=== PATIENT | male | born 1950 | race Caucasian/White ===

== ENCOUNTER 2016-10-03 07:47 | Outpatient (CLI) | payer BC, MEDICARE ==
[2016-10-03 09:00] LABS: Hemoglobin 13.9 g/dL (14.0-18.0); Mean Corpuscular HGB CONC 32.6 g/dL (32.0-36.0); Mean Corpuscular Hemoglobin 31.3 pg (27.0-31.0); Mean Platelet Volume 8.3 fL (7.4-10.4); Platelet Count 252 thou/uL (130-400); RBC Distribution Width 14.2 % (11.5-14.5); Red Blood Cell (RBC) Count 4.43 mill/uL (4.70-6.10); White Blood Cell (WBC) Count 9.6 thou/uL (4.8-10.8)
[2016-10-03 11:18] LABS: Anion Gap 18 mmol/L (10-20); Bilirubin, Total 0.9 mg/dL (0.2-1.2); Glucose 81 mg/dL (80-115)
[2016-10-03 11:34] LABS: ALT (SGPT) 13 U/L (0-55); AST (SGOT) 22 U/L (5-34); Albumin 3.6 g/dL (3.4-4.8); Alkaline Phosphatase 45 U/L (40-150); BUN (Urea Nitrogen) 18 mg/dL (8.4-25.7); Calc. Creatinine Clearance 0 mL/min (70-130); Calcium 9.5 mg/dL (7.8-10.44); Carbon Dioxide 24 mmol/L (23-31); Chloride 102 mmol/L (98-107); Estimated GFR-MDRD Greater than 90; Globulin 2.8 g/dL (2.4-3.5); Potassium 3.6 mmol/L (3.5-5.1); Protein, Total 6.4 g/dL (5.8-8.1); Sodium 140 mmol/L (136-145)
== END 2016-10-03 07:48 | disposition home or self-care (01) ==
LOC: MADLAB 07:47
PROVIDERS: ATTEND Family Medicine
DX: E11.9 Type 2 diabetes mellitus without complications (principal); I10 Essential (primary) hypertension; Z79.899 Other long term (current) drug therapy
CPT/HCPCS: 36415; 80053; 85027

== ENCOUNTER 2016-11-30 05:27 | Outpatient (CLI) | payer BC, MEDICARE ==
[2016-11-30 05:55] LABS: Hemoglobin 14.1 g/dL (14.0-18.0); Mean Corpuscular HGB CONC 32.8 g/dL (32.0-36.0); Mean Corpuscular Hemoglobin 31.5 pg (27.0-31.0); Mean Corpuscular Volume 96.1 fl (80.0-94.0); Mean Platelet Volume 10.3 fL (7.4-10.4); Platelet Count 203 thou/uL (130-400); RBC Distribution Width 13.5 % (11.5-14.5); Red Blood Cell (RBC) Count 4.48 mill/uL (4.70-6.10); White Blood Cell (WBC) Count 8.9 thou/uL (4.8-10.8)
[2016-11-30 06:17] LABS: ALT (SGPT) 38 U/L (0-55); AST (SGOT) 40 U/L (5-34); Albumin 3.7 g/dL (3.4-4.8); Alkaline Phosphatase 50 U/L (40-150); Anion Gap 17 mmol/L (10-20); BUN (Urea Nitrogen) 27 mg/dL (8.4-25.7); Bilirubin, Total 0.5 mg/dL (0.2-1.2); Calc. Creatinine Clearance 0 mL/min (70-130); Calcium 9.8 mg/dL (7.8-10.44); Carbon Dioxide 24 mmol/L (23-31); Cardiac Risk 2.3 (Less than 4.5); Chloride 104 mmol/L (98-107); Cholesterol 73 mg/dL (< 200 Desired); Estimated GFR-MDRD 88; Globulin 2.4 g/dL (2.4-3.5); Glucose 96 mg/dL (80-115); HDL Cholesterol 32 mg/dL (>60 Neg Risk); LDL Cholesterol, Calculated 25 mg/dL; Protein, Total 6.1 g/dL (5.8-8.1); Sodium 141 mmol/L (136-145); Triglycerides 78 mg/dL (Less than 150)
== END 2016-11-30 05:28 | disposition home or self-care (01) ==
LOC: MADLAB 05:27
PROVIDERS: ATTEND Internal Medicine Cardiovascular Disease
DX: E78.00 Pure hypercholesterolemia, unspecified (principal)
CPT/HCPCS: 36415; 80053; 80061; 85027

== ENCOUNTER 2017-03-01 05:32 | Outpatient (CLI) | payer BC, MEDICARE ==
[2017-03-01 06:19] LABS: #Basophils 0.2 thou/uL (0.0-0.2); #Eosinphils 0.7 thou/uL (0.0-0.7); #Lymphocytes 2.8 thou/uL (1.20-3.40); #Monocytes 0.7 thou/uL (0.11-0.59); #Neutrophils 3.2 thou/uL (1.40-6.50); %Eosinophils 9.3 % (0.0-10.0); %Lymphocytes 37.2 % (21.0-51.0); %Monocytes 9.3 % (0.0-10.0); %Neutrophils 42.2 % (42.0-75.0); Hemoglobin 14.2 g/dL (14.0-18.0); Mean Corpuscular HGB CONC 32.3 g/dL (32.0-36.0); Mean Platelet Volume 9.2 fL (7.4-10.4); Platelet Count 177 thou/uL (130-400); RBC Distribution Width 13.8 % (11.5-14.5); Red Blood Cell (RBC) Count 4.44 mill/uL (4.70-6.10); White Blood Cell (WBC) Count 7.6 thou/uL (4.8-10.8)
[2017-03-01 06:44] LABS: ALT (SGPT) 23 U/L (8-55); AST (SGOT) 31 U/L (5-34); Albumin 3.7 g/dL (3.4-4.8); Alkaline Phosphatase 57 U/L (40-150); Anion Gap 14 mmol/L (10-20); BUN (Urea Nitrogen) 35 mg/dL (8.4-25.7); Bilirubin, Direct 0.4 mg/dL (0.1-0.3); Bilirubin, Total 0.6 mg/dL (0.2-1.2); Calc. Creatinine Clearance 0 mL/min (70-130); Calcium 9.6 mg/dL (7.8-10.44); Carbon Dioxide 24 mmol/L (23-31); Cardiac Risk 1.9 (Less than 4.5); Chloride 107 mmol/L (98-107); Cholesterol 69 mg/dl (< 200 Desired); Estimated GFR-MDRD 75; Glucose 93 mg/dL (80-115); HDL Cholesterol 36 mg/dL (>60 Neg Risk); LDL Cholesterol, Calculated 22 mg/dL; Potassium 4.4 mmol/L (3.5-5.1); Sodium 141 mmol/L (136-145); Triglycerides 55 mg/dL (Less than 150)
[2017-03-01 07:11] LABS: PSA-Asymptomatic (SCREENING) 0.72 ng/mL (0-4.0); Thyroid Stimulating Hormone 2.1257 uIU/mL (0.35-4.94)
== END 2017-03-01 05:33 ==
LOC: MADLAB 05:32
PROVIDERS: ATTEND Internal Medicine Cardiovascular Disease
DX: E78.00 Pure hypercholesterolemia, unspecified (principal)
CPT/HCPCS: 80048; 80061; 80076; 83036; 83880; 84443; 85025; G0103

== ENCOUNTER 2018-03-02 06:16 | Outpatient (CLI) | payer BC, MEDICARE ==
[2018-03-02 07:48] LABS: #Basophils 0.1 thou/uL (0.0-0.2); #Eosinphils 0.3 thou/uL (0.0-0.7); #Lymphocytes 2.3 thou/uL (1.20-3.40); #Monocytes 0.5 thou/uL (0.11-0.59); #Neutrophils 2.1 thou/uL (1.40-6.50); %Basophils 1.9 % (0.0-1.0); %Eosinophils 5.3 % (0.0-10.0); %Lymphocytes 43.7 % (21.0-51.0); %Neutrophils 40.2 % (42.0-75.0); Hemoglobin 14.6 g/dL (14.0-18.0); Mean Corpuscular HGB CONC 31.8 g/dL (32.0-36.0); Mean Corpuscular Hemoglobin 32.1 pg (27.0-31.0); Mean Platelet Volume 8.5 fL (7.4-10.4); Platelet Count 166 thou/uL (130-400); RBC Distribution Width 14.1 % (11.5-14.5); Red Blood Cell (RBC) Count 4.55 mill/uL (4.70-6.10); White Blood Cell (WBC) Count 5.1 thou/uL (4.8-10.8)
[2018-03-02 08:20] LABS: ALT (SGPT) 30 U/L (8-55); AST (SGOT) 41 U/L (5-34); Albumin 3.7 g/dL (3.4-4.8); Alkaline Phosphatase 63 U/L (40-150); Anion Gap 17 mmol/L (10-20); BUN (Urea Nitrogen) 41 mg/dL (8.4-25.7); Bilirubin, Direct 0.3 mg/dL (0.1-0.3); Bilirubin, Total 0.7 mg/dL (0.2-1.2); Calc. Creatinine Clearance 0 mL/min (70-130); Calcium 9.3 mg/dL (7.8-10.44); Carbon Dioxide 24 mmol/L (23-31); Chloride 108 mmol/L (98-107); Cholesterol 53 mg/dl (< 200 Desired); Estimated GFR-MDRD 76; Glucose 82 mg/dL (80-115); HDL Cholesterol 27 mg/dL (>60 Neg Risk); LDL Cholesterol, Calculated 16 mg/dL; Potassium 4.1 mmol/L (3.5-5.1); Protein, Total 5.7 g/dL (5.8-8.1); Sodium 145 mmol/L (136-145); Triglycerides 50 mg/dL (Less than 150)
[2018-03-02 11:47] LABS: Hemoglobin A1c 4.7 % (4.0-6.0)
== END 2018-03-02 06:17 | disposition home or self-care (01) ==
LOC: MADLAB 06:16
PROVIDERS: ATTEND Family Medicine
DX: I11.0 Hypertensive heart disease with heart failure (principal); I50.9 Heart failure, unspecified
CPT/HCPCS: 36415; 80048; 80061; 80076; 83036; 83880; 84443; 85025

== ENCOUNTER 2020-10-27 18:04 | Inpatient (IN) | payer MEDICARE, OTHER ==
[2020-10-27] MEDS ORDERED: Nitroglycerin 0.4 MG TAB (25 Tab Bottle) SL PRN (19:49)
[2020-10-27] MEDS ORDERED: Polyethylene Glycol 3350 17 GM Packet PO PRN (19:49)
[2020-10-27] MEDS ORDERED: Loratadine 10 MG TAB PO PRN (19:49)
[2020-10-27] MEDS: Carvedilol 3.125 MG TAB PO SCH (21:19)
[2020-10-28] MEDS: Fenofibrate Nanocrystallized 145 MG TAB PO SCH (08:45)
[2020-10-28] MEDS: Famotidine 20 MG TAB PO SCH (08:46)
[2020-10-28] MEDS: Aspirin Chewable 81 MG TAB PO SCH (08:46)
[2020-10-28] MEDS: Dexamethasone 4 MG TAB PO SCH (08:46)
[2020-10-28] MEDS: Carvedilol 3.125 MG TAB PO SCH ×2 (08:48→20:00)
[2020-10-28] MEDS: Lisinopril 5 MG TAB PO SCH (08:48)
[2020-10-28] MEDS: Tamsulosin HCl 0.4 MG CAP PO SCH (08:49)
[2020-10-28] MEDS: Furosemide 40 MG TAB PO SCH (08:49)
[2020-10-28] MEDS: Rivaroxaban 10 MG TAB PO SCH (08:49)
[2020-10-28] MEDS: Finasteride 5 MG TAB PO SCH (08:49)
[2020-10-28] MEDS: Atorvastatin Calcium 40 MG TAB PO SCH (08:50)
[2020-10-28] MEDS: Potassium Chloride 20 MEQ TAB PO SCH (08:51)
[2020-10-28] MEDS: valACYclovir 500 MG TAB PO SCH (08:52)
[2020-10-28] MEDS: Multivit, Therapeutic 1 TAB PO SCH (08:52)
[2020-10-28] MEDS ORDERED: FLU VACC QS2020-21(65YR UP)/PF 240 MCG/0.7 ML SYRINGE IM ONE (09:00)
--- NOTE | 2020-10-28 21:01 | HP ---
REASON FOR ADMISSION: Skilled rehab in [place] secondary to deconditioning/general weakness after recent hospitalization. HISTORY OF PRESENT ILLNESS AND HOSPITAL COURSE: Mr. Vasquez is a pleasant 70-year-old gentleman who was initially admitted to [facility] on October 17, 2020, secondary to shortness of breath for several days. The patient had significant history of atrial fibrillation, CHF, anemia, CAD, hypertension, and morbid obesity. On admission, his BNP was reported at 2500 with Sp02 in the mid 80's requiring 3 liters of 02 per nasal cannula; Troponin 0.346 and Creatinine 2.5 with baseline of 1.0. He was admitted for diuresis. His INR was 6.5 initially. The patient also has a significant anemia that is being followed by Oncologist, for possible myeloma. During this admission, his echocardiogram showed ejection fraction of 40% to 50% with severely dilated LA and increased pulmonary artery pressures of 50 mmHg. He was placed on strict I's and O's, daily weights, and 1500 mL fluid restriction for 24 hours. The patient was initially placed on indwelling urinary catheter and was removed prior to discharge. He voided prior to discharge and continuously voiding upon admission in [place] without issues.He is currently, on Coreg, Lasix, lisinopril. Cardiology was in consultation for this and has recommended to continue current medications with no further cardiac interventions needed. Oncology was likewise consulted. Bone marrow biopsy on 10/20/2020 confirmed the diagnosis of free light chain multiple myeloma with 24-hour urine electrophoresis and light chain assay showed M-spike. After the Oncologist's discussion of the treatment options and safe technician prognosis with the patient and family, Oncologists recommended to start treatment with Velcade and dexamethasone once weekly. The first dose was started in the hospital prior to transfer, and his next followup appointment with oncologist, Dr. Amador will be on November 04, 2020 at 08:30 a.m. as outpatient. Overall, the patient's anemia was stable during his recent hospitalization. His most recent hemoglobin was 8.7 with hematocrit 27.3 and platelets of 180 on 10/27/2020. INR was down to 2.8 prior to discharge. The patient also had an acute kidney injury during this hospitalization. Nephrology was consulted. Renal ultrasound was ordered. There was no obstruction or abnormality and his kidney function stabilized with the latest BUN of 15 and creatinine of 0.60. Hypokalemia was noted and patient was maintained on 40 mEq daily at this point. On 10/27/2020, his potassium was 3.7, with sodium of 135. The patient has an appointment with Dr. Batista as outpatient followup on 11/13/2020 at 03:30 p.m. in [facility]. When evaluated, the patient reports that he is feeling a lot better. The patient started ambulating with the use of a rolling walker. He reports that he is still generally weak and somewhat wobbly with his gait. He has open blisters in his legs noted upon admission. Patient reports, they have been there chronically come and go. Patient is apparently chest pain- free. No shortness of breath nor dyspnea on exertion. Sp02 is stable at room air. No other new issues at this time. PAST MEDICAL HISTORY: Hypertension; chronic atrial fibrillation, on long-term use of anticoagulant; CAD; CHF with latest EF of 40% to 50%; pulmonary hypertension; anemia of chronic, uncertain etiology; dyslipidemia; CKD; history of bilateral lower extremity cellulitis; history of PVD; morbid obesity; BPH, GERD FAMILY HISTORY: Noncontributory. SOCIAL HISTORY: No alcohol, tobacco, or illicit drug use. Patient lives with his 24-year-old granddaughter in [facility]. Daughter, Leila Gallo, who acts as the medical power of research attorney, lives out of town, but is in contact with the patient and actively involved in patient's care. CURRENT MEDICATIONS: 1. Alirocumab 75 subcu every 14 days. 2. Aspirin chewable 81 mg p.o. daily. 3. Atorvastatin 20 mg p.o. daily. 4. Carvedilol 3.125 mg p.o. b.i.d. 5. Famotidine 20 mg daily. 6. Fenofibrate 145 mg p.o. daily. 7. Finasteride 5 mg p.o. daily. 8. Furosemide 40 mg p.o. daily. 9. Lisinopril 2.5 mg p.o. daily. 10. Loratadine 10 mg p.o. daily. 11. Nitroglycerin 0.4 mg subcu every 5 minutes p.r.n. 12. Polyethylene glycol 17 g p.o. daily p.r.n. 13. Potassium chloride 40 mEq p.o. q.a.m. 14. Xarelto 20 mg p.o. daily. 15. Tamsulosin 0.5 mg p.o. daily. 16. Valacyclovir 500 mg p.o. daily. REVIEW OF SYSTEMS: GENERAL: Denies fever or chills. Reports fatigue. HEENT: No acute visual changes or hearing changes. Reports allergy symptoms. RESPIRATORY: Denies cough or sputum production, wheezing. CARDIAC: Denies chest pain or heart palpitations, paroxysmal nocturnal dyspnea. GI: No nausea, vomiting, abdominal pain, or diarrhea. Reports constipation. GENITOURINARY: Reports urgency,no dysuria, hematuria, frequency, or incontinence. MUSCULOSKELETAL: Reports intermittent arthralgia. No joint effusion. NEURO: Denies focal paralysis, paresthesia, or seizures. PSYCH: Denies depressive symptoms, anxiety, or hallucinations. SKIN: reports chronic dry skin, rashes and sores. ALLERGIES: NKDA. PHYSICAL EXAMINATION: VITAL SIGNS: Blood pressure 100/61, temperature 97.4, pulse 63, respirations 18, O2 sats 95% on room air. Weight 207 pounds and 6 ounces. Height 5 feet 10 inches. GENERAL: The patient is awake, alert, oriented x3, comfortable, interacting appropriately, not in distress. HEENT: Normocephalic, atraumatic. PERR. Intact EOM. Anicteric sclerae. Oral mucosa is moist. NECK: Supple. No LAD. CHEST: Normal excursion. Nonlabored breathing. LUNGS: Diminished bibasal bases. No rales. No crackles. No wheezing. No rhonchi. CARDIAC: Rate controlled. Normal S1 and S2. ABDOMEN: Obese and soft. Normoactive bowel sounds. Nondistended, nontender. No rebound or guarding. Negative CVA tenderness bilaterally. EXTREMITIES: No edema. No cyanosis.Hyperpigmented lower legs. SKIN: Minimal redness on the sacrum. Left leg with open blisters medial mid tibia, and anterior tibia. Right leg with scaly and dry skin. EXTREMITIES: trace to 1+ leg edema, from dorsal surface of foot,up to tibia, bilaterally. NEUROLOGIC: Nonfocal. Gait unsteady. Normal spontaneous speech. PSYCH: Calm. Appropriate demeanor and affect. ASSESSMENT AND PLAN: 1. Deconditioning/general weakness with unsteady gait. We will refer to PT/OT.Fall precautions. 2. Free light chain multiple myeloma. Follow up with oncologist on 11/04/2020 at 08:30 a.m. for weekly treatment. Daughter reports the patient used to follow up with Dr. Amador. 3. Congestive heart failure with acute exacerbation. EF 40% to 50%. Continue diuretic, beta-carroll, and low-dose ANY inhibitor. We will continue to watch and monitor the patient's blood pressure as BP appears to be in the low range. The patient is symptom free. Strict fluid restrictions to 1500 mL per 24 hours. 4. Pulmonary hypertension. Consider to continue O2 per nasal cannula if indicated.Continue diuretic. 5. Microcytic anemia, stable hemoglobin at 8.7 as of 10/27/2020. The patient is currently asymptomatic. We will continue to monitor. 6. Paroxysmal atrial fibrillation, on long-term use of anticoagulant. We will continue Xarelto. Routine CBC monitoring. 7. Chronic kidney disease with hypokalemia. Continue KCl supplements and routine renal function and electrolytes monitoring. 8. [id number] elevation myocardial infarction, type 2, resolved. Currently symptom free. Follow up with Dr. Isabel as previously scheduled. 9. Dyslipidemia. Continue fenofibrate and Praluent. 10. Benign prostatic hypertrophy. Continue tamsulosin. 11. Open blisters,Leg. continue routine wound care. DISPOSITION: 1. Home once clinically appropriate. 2. Needs home health referral prior to discharge. CODE STATUS: DNAR per patient's wishes. This was confirmed by daughter/MPOA, Leila Gallo, on the phone. I had a lengthy discussion with the daughter, Leila, on the phone today. Daughter serves as the surrogate decision maker. We discussed in details the patient's apparent active and chronic diagnosis and its treatment. Daughter is actively involved in patient's care. She agreed with the followup treatment with Oncologist. States that ptient used to see Dr Amador for Oncology care but she spoke with Dr Manzanares who saw patient in the hospital. He will also follow up with Dr. Batista for nephrology care, and will set up appointment with sandblaster supervisor, Dr. Isabel, in any time as outpatient. All the daughter's questions and concerns were answered to her satisfaction. The daughter also discussed that the patient's previous PCP was . Daughter reports that previous PCP has already retired and has not had a chance to set up an appointment with new PCP as they do not know who replaced the previous PCP. Daughter is requesting if the patient could re-establish care in [facility] as the patient lives in [place]. The patient and daughter are requesting me to follow up the patient as outpatient. Time spent on this admission 45 minutes in examining the patient, coordinating care and counseling. Job ID: [id number] MTDD
[2020-10-29] MEDS: Multivit, Therapeutic 1 TAB PO SCH (08:39)
[2020-10-29] MEDS: Atorvastatin Calcium 40 MG TAB PO SCH (08:39)
[2020-10-29] MEDS: Aspirin Chewable 81 MG TAB PO SCH (08:39)
[2020-10-29] MEDS: Famotidine 20 MG TAB PO SCH (08:39)
[2020-10-29] MEDS: Potassium Chloride 20 MEQ TAB PO SCH (08:39)
[2020-10-29] MEDS: Rivaroxaban 10 MG TAB PO SCH (08:40)
[2020-10-29] MEDS: valACYclovir 500 MG TAB PO SCH (08:40)
[2020-10-29] MEDS: Finasteride 5 MG TAB PO SCH (08:40)
[2020-10-29] MEDS: Tamsulosin HCl 0.4 MG CAP PO SCH (08:40)
[2020-10-29] MEDS: Furosemide 40 MG TAB PO SCH (08:40)
[2020-10-29] MEDS: Lisinopril 5 MG TAB PO SCH (08:40)
[2020-10-29] MEDS: Carvedilol 3.125 MG TAB PO SCH ×2 (08:40→21:34)
[2020-10-29] MEDS: Fenofibrate Nanocrystallized 145 MG TAB PO SCH (08:41)
[2020-10-29] MEDS ORDERED: ALIROCUMAB 75 MG/ML SC SCH (20:00)
[2020-10-29] MEDS ORDERED: Emollient 15 oz bottle 450 ML, Triamcinolone Acetonide 200 MG TOP SCH (21:00)
[2020-10-29] MEDS: Emollient 15 oz bottle 450 ML, Triamcinolone Acetonide 200 MG TOP SCH (21:39)
[2020-10-29] MEDS ORDERED: Pramipexole Di-HCl 0.25 MG TAB PO SCH (23:00)
[2020-10-30] MEDS: valACYclovir 500 MG TAB PO SCH (08:17)
[2020-10-30] MEDS: Aspirin Chewable 81 MG TAB PO SCH (08:17)
[2020-10-30] MEDS: Multivit, Therapeutic 1 TAB PO SCH (08:17)
[2020-10-30] MEDS: Famotidine 20 MG TAB PO SCH (08:17)
[2020-10-30] MEDS: Lisinopril 5 MG TAB PO SCH (08:18)
[2020-10-30] MEDS: Potassium Chloride 20 MEQ TAB PO SCH (08:19)
[2020-10-30] MEDS: Atorvastatin Calcium 40 MG TAB PO SCH (08:19)
[2020-10-30] MEDS: Rivaroxaban 10 MG TAB PO SCH (08:20)
[2020-10-30] MEDS: Tamsulosin HCl 0.4 MG CAP PO SCH (08:20)
[2020-10-30] MEDS: Loratadine 10 MG TAB PO SCH (08:20)
[2020-10-30] MEDS: Finasteride 5 MG TAB PO SCH (08:20)
[2020-10-30] MEDS: Furosemide 40 MG TAB PO SCH (08:20)
[2020-10-30] MEDS: Carvedilol 3.125 MG TAB PO SCH ×2 (08:20→21:19)
[2020-10-30] MEDS: Emollient 15 oz bottle 450 ML, Triamcinolone Acetonide 200 MG TOP SCH ×2 (08:21→21:21)
[2020-10-30] MEDS: Fenofibrate Nanocrystallized 145 MG TAB PO SCH (08:26)
[2020-10-30 09:06] LABS: #Lymphocytes 0.9 thou/uL (1.20-3.40); #Monocytes 0.6 thou/uL (0.11-0.59); #Neutrophils 5.8 thou/uL (1.40-6.50); %Basophils 0.5 % (0.0-1.0); %Lymphocytes 12.5 % (21.0-51.0); %Monocytes 8.3 % (0.0-10.0); %Neutrophils 78.8 % (42.0-75.0); Hemoglobin 9.1 g/dL (14.0-18.0); Mean Corpuscular HGB CONC 31.4 g/dL (32.0-36.0); Mean Corpuscular Hemoglobin 34.2 pg (27.0-31.0); Mean Corpuscular Volume 108.7 fL (78.0-98.0); Mean Platelet Volume 8.8 fL (7.4-10.4); Platelet Count 213 thou/uL (130-400); RBC Distribution Width 19.9 % (11.5-14.5); Red Blood Cell (RBC) Count 2.67 mill/uL (4.70-6.10); White Blood Cell (WBC) Count 7.4 thou/uL (4.8-10.8)
[2020-10-30 09:09] LABS: ALT (SGPT) 29 U/L (8-55); AST (SGOT) 25 U/L (5-34); Alkaline Phosphatase 86 U/L (40-110); Anion Gap 16 mmol/L (10-20); BUN (Urea Nitrogen) 31 mg/dL (8.4-25.7); Bilirubin, Total 1.3 mg/dL (0.2-1.2); Calc. Creatinine Clearance 122 mL/min (70-130); Calcium 8.6 mg/dL (7.8-10.44); Carbon Dioxide 24 mmol/L (23-31); Chloride 105 mmol/L (98-107); Globulin 2.2 g/dL (2.4-3.5); Glucose 159 mg/dL (83-110); Potassium 3.5 mmol/L (3.5-5.1); Protein, Total 5.2 g/dL (5.8-8.1); Sodium 141 mmol/L (136-145)
[2020-10-30 09:12] LABS: Anisocytosis SLIGHT = 6-15 cells (100X) (0-5/hpf); Macrocytosis SLIGHT = 6-15 cells (100X) (0-5/hpf); Ovalocytes SLIGHT = 2-5 cells (100X) (0-1/hpf); Poikilocytosis SLIGHT = 6-15 cells (100X) (0-5/hpf)
[2020-10-30 09:13] LABS: Platelet Morphology Comment Appears Adequate
[2020-10-30 10:56] LABS: INR-International Normal Ratio 2.7; PTT 34.2 sec (22.9-36.1); Prothrombin Time 29.4 sec (12.0-14.7)
[2020-10-30] MEDS: Pramipexole Di-HCl 0.25 MG TAB PO SCH (21:19)
[2020-10-31] MEDS: Aspirin Chewable 81 MG TAB PO SCH (08:26)
[2020-10-31] MEDS: Fenofibrate Nanocrystallized 145 MG TAB PO SCH (08:26)
[2020-10-31] MEDS: Potassium Chloride 20 MEQ TAB PO SCH (08:26)
[2020-10-31] MEDS: Finasteride 5 MG TAB PO SCH (08:27)
[2020-10-31] MEDS: Atorvastatin Calcium 40 MG TAB PO SCH (08:27)
[2020-10-31] MEDS: Famotidine 20 MG TAB PO SCH (08:27)
[2020-10-31] MEDS: Carvedilol 3.125 MG TAB PO SCH ×2 (08:28→20:36)
[2020-10-31] MEDS: Tamsulosin HCl 0.4 MG CAP PO SCH (08:28)
[2020-10-31] MEDS: Multivit, Therapeutic 1 TAB PO SCH (08:28)
[2020-10-31] MEDS: Rivaroxaban 10 MG TAB PO SCH (08:28)
[2020-10-31] MEDS: valACYclovir 500 MG TAB PO SCH (08:28)
[2020-10-31] MEDS: Furosemide 20 MG TAB PO SCH (08:28)
[2020-10-31] MEDS: Loratadine 10 MG TAB PO SCH (08:29)
[2020-10-31] MEDS: Lisinopril 5 MG TAB PO SCH (08:29)
[2020-10-31] MEDS: Emollient 15 oz bottle 450 ML, Triamcinolone Acetonide 200 MG TOP SCH ×2 (09:22→20:36)
[2020-10-31] MEDS: Pramipexole Di-HCl 0.25 MG TAB PO SCH (20:36)
[2020-11-01] MEDS: Finasteride 5 MG TAB PO SCH (08:31)
[2020-11-01] MEDS: Aspirin Chewable 81 MG TAB PO SCH (08:31)
[2020-11-01] MEDS: Tamsulosin HCl 0.4 MG CAP PO SCH (08:31)
[2020-11-01] MEDS: Fenofibrate Nanocrystallized 145 MG TAB PO SCH (08:31)
[2020-11-01] MEDS: Famotidine 20 MG TAB PO SCH (08:31)
[2020-11-01] MEDS: valACYclovir 500 MG TAB PO SCH (08:31)
[2020-11-01] MEDS: Atorvastatin Calcium 40 MG TAB PO SCH (08:31)
[2020-11-01] MEDS: Rivaroxaban 10 MG TAB PO SCH (08:32)
[2020-11-01] MEDS: Carvedilol 3.125 MG TAB PO SCH ×2 (08:33→20:52)
[2020-11-01] MEDS: Lisinopril 5 MG TAB PO SCH (08:33)
[2020-11-01] MEDS: Multivit, Therapeutic 1 TAB PO SCH (08:33)
[2020-11-01] MEDS: Loratadine 10 MG TAB PO SCH (08:33)
[2020-11-01] MEDS: Furosemide 20 MG TAB PO SCH (08:33)
[2020-11-01] MEDS: Potassium Chloride 20 MEQ TAB PO SCH (08:34)
[2020-11-01] MEDS: Emollient 15 oz bottle 450 ML, Triamcinolone Acetonide 200 MG TOP SCH ×2 (11:58→20:52)
[2020-11-01] MEDS: Pramipexole Di-HCl 0.25 MG TAB PO SCH (20:52)
[2020-11-02] MEDS: Fenofibrate Nanocrystallized 145 MG TAB PO SCH (07:56)
[2020-11-02] MEDS: Potassium Chloride 20 MEQ TAB PO SCH (07:56)
[2020-11-02] MEDS: Tamsulosin HCl 0.4 MG CAP PO SCH (07:56)
[2020-11-02] MEDS: Finasteride 5 MG TAB PO SCH (07:56)
[2020-11-02] MEDS: Furosemide 20 MG TAB PO SCH (07:57)
[2020-11-02] MEDS: Atorvastatin Calcium 40 MG TAB PO SCH (07:57)
[2020-11-02] MEDS: Carvedilol 3.125 MG TAB PO SCH ×2 (07:57→20:17)
[2020-11-02] MEDS: Lisinopril 5 MG TAB PO SCH (07:57)
[2020-11-02] MEDS: Rivaroxaban 10 MG TAB PO SCH (07:57)
[2020-11-02] MEDS: Multivit, Therapeutic 1 TAB PO SCH (07:57)
[2020-11-02] MEDS: Famotidine 20 MG TAB PO SCH (07:57)
[2020-11-02] MEDS: Aspirin Chewable 81 MG TAB PO SCH (07:57)
[2020-11-02] MEDS: Emollient 15 oz bottle 450 ML, Triamcinolone Acetonide 200 MG TOP SCH ×2 (07:58→20:17)
[2020-11-02] MEDS: Loratadine 10 MG TAB PO SCH (07:58)
[2020-11-02] MEDS: valACYclovir 500 MG TAB PO SCH (07:58)
[2020-11-02] MEDS: Pramipexole Di-HCl 0.25 MG TAB PO SCH (20:17)
[2020-11-03 05:30] LABS: Hemoglobin 8.8 g/dL (14.0-18.0); Platelet Count 198 thou/uL (130-400)
[2020-11-03] MEDS ORDERED: Potassium Bicarbonate/Cit Ac 20 MEQ TAB PO SCH (08:00)
[2020-11-03] MEDS: Aspirin Chewable 81 MG TAB PO SCH (08:29)
[2020-11-03] MEDS: Finasteride 5 MG TAB PO SCH (08:29)
[2020-11-03] MEDS: Atorvastatin Calcium 40 MG TAB PO SCH (08:29)
[2020-11-03] MEDS: Multivit, Therapeutic 1 TAB PO SCH (08:30)
[2020-11-03] MEDS: Loratadine 10 MG TAB PO SCH (08:30)
[2020-11-03] MEDS: Fenofibrate Nanocrystallized 145 MG TAB PO SCH (08:30)
[2020-11-03] MEDS: Carvedilol 3.125 MG TAB PO SCH ×2 (08:30→20:22)
[2020-11-03] MEDS: Famotidine 20 MG TAB PO SCH (08:30)
[2020-11-03] MEDS: valACYclovir 500 MG TAB PO SCH (08:30)
[2020-11-03] MEDS: Lisinopril 5 MG TAB PO SCH (08:30)
[2020-11-03] MEDS: Tamsulosin HCl 0.4 MG CAP PO SCH (08:30)
[2020-11-03] MEDS: Furosemide 20 MG TAB PO SCH (08:30)
[2020-11-03] MEDS: Rivaroxaban 10 MG TAB PO SCH (08:30)
[2020-11-03] MEDS: Emollient 15 oz bottle 450 ML, Triamcinolone Acetonide 200 MG TOP SCH ×2 (08:31→20:23)
[2020-11-03] MEDS: Pramipexole Di-HCl 0.25 MG TAB PO SCH (20:22)
[2020-11-04] MEDS: Potassium Chloride 20 MEQ TAB PO SCH (07:31)
[2020-11-04] MEDS: Dexamethasone 4 MG TAB PO SCH (07:31)
[2020-11-04] MEDS: valACYclovir 500 MG TAB PO SCH (07:32)
[2020-11-04] MEDS: Furosemide 20 MG TAB PO SCH ×2 (07:32→14:42)
[2020-11-04] MEDS: Multivit, Therapeutic 1 TAB PO SCH (07:32)
[2020-11-04] MEDS: Finasteride 5 MG TAB PO SCH (07:33)
[2020-11-04] MEDS: Carvedilol 3.125 MG TAB PO SCH ×2 (07:33→20:45)
[2020-11-04] MEDS: Fenofibrate Nanocrystallized 145 MG TAB PO SCH (07:33)
[2020-11-04] MEDS: Rivaroxaban 10 MG TAB PO SCH (07:33)
[2020-11-04] MEDS: Loratadine 10 MG TAB PO SCH (07:33)
[2020-11-04] MEDS: Atorvastatin Calcium 40 MG TAB PO SCH (07:33)
[2020-11-04] MEDS: Aspirin Chewable 81 MG TAB PO SCH (07:33)
[2020-11-04] MEDS: Lisinopril 5 MG TAB PO SCH (07:34)
[2020-11-04] MEDS: Famotidine 20 MG TAB PO SCH (07:35)
[2020-11-04] MEDS: Emollient 15 oz bottle 450 ML, Triamcinolone Acetonide 200 MG TOP SCH ×2 (07:35→20:50)
[2020-11-04 15:34] VITALS: BMI 29.2
[2020-11-04] MEDS: Pramipexole Di-HCl 0.25 MG TAB PO SCH (20:45)
[2020-11-04] MEDS: Tamsulosin HCl 0.4 MG CAP PO SCH (20:46)
[2020-11-05] MEDS: Potassium Chloride 20 MEQ TAB PO SCH (08:23)
[2020-11-05] MEDS: Fenofibrate Nanocrystallized 145 MG TAB PO SCH (08:23)
[2020-11-05] MEDS: Finasteride 5 MG TAB PO SCH (08:23)
[2020-11-05] MEDS: Aspirin Chewable 81 MG TAB PO SCH (08:23)
[2020-11-05] MEDS: valACYclovir 500 MG TAB PO SCH (08:23)
[2020-11-05] MEDS: Famotidine 20 MG TAB PO SCH (08:23)
[2020-11-05] MEDS: Furosemide 20 MG TAB PO SCH (08:24)
[2020-11-05] MEDS: Loratadine 10 MG TAB PO SCH (08:24)
[2020-11-05] MEDS: Rivaroxaban 10 MG TAB PO SCH (08:24)
[2020-11-05] MEDS: Multivit, Therapeutic 1 TAB PO SCH (08:24)
[2020-11-05] MEDS: Atorvastatin Calcium 40 MG TAB PO SCH (08:25)
[2020-11-05] MEDS: Carvedilol 3.125 MG TAB PO SCH ×2 (08:28→21:27)
[2020-11-05] MEDS: Rivaroxaban 10 MG TAB ONE ×2 (08:28→10:15)
[2020-11-05] MEDS: Lisinopril 5 MG TAB PO SCH (08:29)
[2020-11-05] MEDS: Emollient 15 oz bottle 450 ML, Triamcinolone Acetonide 200 MG TOP SCH ×2 (10:56→21:44)
[2020-11-05] MEDS ORDERED: Loperamide HCl 2 MG CAP PO SCH (17:30)
[2020-11-05] MEDS: Tamsulosin HCl 0.4 MG CAP PO SCH (21:27)
[2020-11-05] MEDS: Pramipexole Di-HCl 0.25 MG TAB PO SCH (21:27)
[2020-11-05] MEDS: Loperamide HCl 2 MG CAP PO PRN (21:27)
[2020-11-06] MEDS: Fenofibrate Nanocrystallized 145 MG TAB PO SCH (08:27)
[2020-11-06] MEDS: Multivit, Therapeutic 1 TAB PO SCH (08:27)
[2020-11-06] MEDS: Loperamide HCl 2 MG CAP PO PRN (08:27)
[2020-11-06] MEDS: Aspirin Chewable 81 MG TAB PO SCH (08:27)
[2020-11-06] MEDS: Loratadine 10 MG TAB PO SCH (08:27)
[2020-11-06] MEDS: Finasteride 5 MG TAB PO SCH (08:27)
[2020-11-06] MEDS: Atorvastatin Calcium 40 MG TAB PO SCH (08:28)
[2020-11-06] MEDS: valACYclovir 500 MG TAB PO SCH (08:28)
[2020-11-06] MEDS: Rivaroxaban 10 MG TAB PO SCH (08:28)
[2020-11-06] MEDS: Famotidine 20 MG TAB PO SCH (08:28)
[2020-11-06] MEDS: Emollient 15 oz bottle 450 ML, Triamcinolone Acetonide 200 MG TOP SCH ×2 (08:31→20:36)
[2020-11-06 09:37] LABS: Anion Gap 15 mmol/L (10-20); BUN (Urea Nitrogen) 25 mg/dL (8.4-25.7); Calc. Creatinine Clearance 112 mL/min (70-130); Carbon Dioxide 20 mmol/L (23-31); Chloride 105 mmol/L (98-107); Glucose 229 mg/dL (83-110); Potassium 3.8 mmol/L (3.5-5.1); Sodium 136 mmol/L (136-145)
[2020-11-06] MEDS: Carvedilol 3.125 MG TAB PO SCH ×2 (10:15→20:03)
[2020-11-06] MEDS: Lisinopril 5 MG TAB PO SCH (10:28)
[2020-11-06] MEDS: Furosemide 20 MG TAB PO SCH (10:28)
[2020-11-06] MEDS: Simethicone Chewable 80 MG TAB PO PRN (19:25)
[2020-11-06] MEDS: Tamsulosin HCl 0.4 MG CAP PO SCH (20:03)
[2020-11-06] MEDS: Pramipexole Di-HCl 0.25 MG TAB PO SCH (20:03)
[2020-11-07] MEDS: Rivaroxaban 10 MG TAB PO SCH (08:37)
[2020-11-07] MEDS: valACYclovir 500 MG TAB PO SCH (08:37)
[2020-11-07] MEDS: Fenofibrate Nanocrystallized 145 MG TAB PO SCH (08:37)
[2020-11-07] MEDS: Aspirin Chewable 81 MG TAB PO SCH (08:38)
[2020-11-07] MEDS: Furosemide 20 MG TAB PO SCH (08:38)
[2020-11-07] MEDS: Finasteride 5 MG TAB PO SCH (08:38)
[2020-11-07] MEDS: Atorvastatin Calcium 40 MG TAB PO SCH (08:38)
[2020-11-07] MEDS: Loratadine 10 MG TAB PO SCH (08:38)
[2020-11-07] MEDS: Famotidine 20 MG TAB PO SCH (08:38)
[2020-11-07] MEDS: Carvedilol 3.125 MG TAB PO SCH ×2 (08:38→20:12)
[2020-11-07] MEDS: Multivit, Therapeutic 1 TAB PO SCH (08:38)
[2020-11-07] MEDS: Emollient 15 oz bottle 450 ML, Triamcinolone Acetonide 200 MG TOP SCH ×2 (08:39→20:12)
[2020-11-07] MEDS: Lisinopril 5 MG TAB PO SCH (08:39)
[2020-11-07] MEDS: Loperamide HCl 2 MG CAP PO PRN ×2 (09:00→14:54)
[2020-11-07] MEDS ORDERED: Potassium Chloride 20 MEQ TAB PO SCH (09:15)
[2020-11-07] MEDS: Simethicone Chewable 80 MG TAB PO PRN (20:11)
[2020-11-07] MEDS: Pramipexole Di-HCl 0.25 MG TAB PO SCH (20:11)
[2020-11-07] MEDS: Tamsulosin HCl 0.4 MG CAP PO SCH (20:11)
[2020-11-08] MEDS: Simethicone Chewable 80 MG TAB PO PRN ×2 (03:48→20:11)
[2020-11-08] MEDS ORDERED: Ondansetron PF 4 MG/2 ML Vial ONE (04:05)
[2020-11-08] MEDS: valACYclovir 500 MG TAB PO SCH (08:30)
[2020-11-08] MEDS: Famotidine 20 MG TAB PO SCH (08:30)
[2020-11-08] MEDS: Potassium Chloride 20 MEQ TAB PO SCH (08:30)
[2020-11-08] MEDS: Rivaroxaban 10 MG TAB PO SCH (08:30)
[2020-11-08] MEDS: Fenofibrate Nanocrystallized 145 MG TAB PO SCH (08:30)
[2020-11-08] MEDS: Atorvastatin Calcium 40 MG TAB PO SCH (08:30)
[2020-11-08] MEDS: Multivit, Therapeutic 1 TAB PO SCH (08:30)
[2020-11-08] MEDS: Loratadine 10 MG TAB PO SCH (08:31)
[2020-11-08] MEDS: Furosemide 20 MG TAB PO SCH (08:31)
[2020-11-08] MEDS: Aspirin Chewable 81 MG TAB PO SCH (08:31)
[2020-11-08] MEDS: Lisinopril 5 MG TAB PO SCH (08:32)
[2020-11-08] MEDS: Carvedilol 3.125 MG TAB PO SCH ×2 (08:32→20:12)
[2020-11-08] MEDS: Finasteride 5 MG TAB PO SCH (08:32)
[2020-11-08] MEDS: Emollient 15 oz bottle 450 ML, Triamcinolone Acetonide 200 MG TOP SCH ×2 (08:32→20:12)
[2020-11-08 19:17] VITALS: TEMP 97.7
[2020-11-08] MEDS: Pramipexole Di-HCl 0.25 MG TAB PO SCH (20:11)
[2020-11-08] MEDS: Tamsulosin HCl 0.4 MG CAP PO SCH (20:11)
[2020-11-09] MEDS: Famotidine 20 MG TAB PO SCH (08:10)
[2020-11-09] MEDS: Rivaroxaban 10 MG TAB PO SCH (08:10)
[2020-11-09] MEDS: Fenofibrate Nanocrystallized 145 MG TAB PO SCH (08:10)
[2020-11-09] MEDS: Aspirin Chewable 81 MG TAB PO SCH (08:10)
[2020-11-09] MEDS: Finasteride 5 MG TAB PO SCH (08:10)
[2020-11-09] MEDS: Potassium Chloride 20 MEQ TAB PO SCH (08:10)
[2020-11-09] MEDS: Atorvastatin Calcium 40 MG TAB PO SCH (08:11)
[2020-11-09] MEDS: Carvedilol 3.125 MG TAB PO SCH (08:11)
[2020-11-09] MEDS: Furosemide 20 MG TAB PO SCH (08:11)
[2020-11-09] MEDS: valACYclovir 500 MG TAB PO SCH (08:11)
[2020-11-09] MEDS: Lisinopril 5 MG TAB PO SCH (08:12)
[2020-11-09] MEDS: Multivit, Therapeutic 1 TAB PO SCH (08:12)
[2020-11-09 08:13] VITALS: BP 100/63
[2020-11-09] MEDS: Loratadine 10 MG TAB PO SCH (09:02)
[2020-11-09] MEDS: Emollient 15 oz bottle 450 ML, Triamcinolone Acetonide 200 MG TOP SCH (09:02)
--- NOTE | 2020-11-09 22:19 | DIS ---
DATE OF ADMISSION: 10/27/2020 DATE OF DISCHARGE: 11/09/2020 REASON FOR ADMISSION: Skilled rehab in [place] secondary to general weakness, deconditioning after the recent hospitalization. DIAGNOSES: 1. Physical deconditioning and general weakness. 2. Congestive heart failure associated with pulmonary hypertension and hypotension, asymptomatic, diastolic with ejection fraction of 40% to 50% with acute exacerbation, resolved. 3. Free light chain multiple myeloma, on chemotherapy every week with Dr. Amador/Natasha. 4. Paroxysmal atrial fibrillation, on long-term use of anticoagulant. 5. Chronic kidney disease with hypokalemia, stable with KCl supplement. 6. Microcytic anemia. 7. Dyslipidemia. 8. Benign prostatic hypertrophy. 9. Open blister on the leg, resolved. 10. Acute restless legs syndrome. DISPOSITION: Home with daughter. CONDITION ON DISCHARGE: Stable. HOME MEDICATIONS: 1. Aspirin 81 mg p.o. daily. 2. Atorvastatin 20 mg p.o. daily. 3. Carvedilol 3.125 mg p.o. q.a.m. 4. Famotidine 20 mg p.o. daily. 5. Fenofibrate 145 mg p.o. daily. 6. Alirocumab 75 subcu every 14 days. 7. Furosemide 20 mg p.o. daily. 8. Loratadine 10 mg p.o. daily. 9. Polyethylene glycol 17 g p.o. daily p.r.n. 10. Nitroglycerin 0.4 mg sublingual every 5 minutes p.r.n. for chest pain x3. 11. Xarelto 20 mg p.o. daily. 12. Tamsulosin 0.5 mg p.o. daily. 13. Valacyclovir 500 mg p.o. daily. 14. Finasteride 5 mg p.o. daily and at bedtime. 15. Pramipexole 0.5 mg p.o. at bedtime. 16. Triamcinolone 0.5 mg b.i.d. DISCHARGE INSTRUCTIONS: DIET: Heart healthy, 1.5 L per 24 hours fluid restriction. ACTIVITY: Ad sailaja. To use rolling walker at all times. FOLLOWUP: With Dr. Delgadillo to reestablish care in 1 week, sooner with concerns. Follow up with oncologist every Monday for chemotherapy. Leg elevation at all times. HISTORY OF THE PRESENT ILLNESS AND HOSPITAL COURSE: Pedro is a very pleasant 70-year-old male with significant history of CHF; pulmonary hypertension; chronic atrial fibrillation, on long-term use of anticoagulant; hypertension; and chronic anemia. The patient was recently admitted to [facility] in [place], October 17, 2020, secondary to shortness of breath for several days. He was admitted with a BNP of 2500, O2 in the mid 80s requiring 3 L of O2 per nasal cannula. Troponin of 0.346 and creatinine of 2.5 with a baseline of 1 and INR of 6.5. The patient was treated appropriately in the hospital in consultation with burlap roll coverer and bioprocess development engineer. Oncologist was likewise consulted for chronic anemia with history of probable multiple myeloma. The patient was treated with diuretics, beta carroll and low dose of ANY inhibitor. The patient did well and had been stabilized. His bone marrow biopsy on 10/20/2020 confirmed the diagnosis of free light chain multiple myeloma. A 24-hour urine electrophoresis and light chain assay showed M-spike. The patient was started on chemotherapy at the hospital using Velcade and dexamethasone. Oncology is recommending every weekly treatment with the above medications thereafter. After patient has stabilized in the hospital, he was subsequently transferred to [place] [facility] secondary to deconditioning, general weakness, and unsteadiness of gait. The patient underwent rehab in [place] and did very well. He was walking 182 feet with rolling walker and standby supervision only prior to discharge. Over the hospital course in skilled rehab, the patient's blood has was been trending in the low range from 96/58 to low 100s over 60s. Reports that he has these issues even before, but he remained symptom-free. His medications were adjusted appropriately. He was down to Lasix 20 mg p.o. daily, carvedilol 3.125 mg q.a.m., and low-dose lisinopril 2.5 mg p.o. daily was discontinued. On 11/09/2020, the patient was adamant to go home. His daughter, Leila, serves as the surrogate decision maker for the patient, came over and pickup the patient per request. His PCP is out in [place] and has retired. Daughter and patient would like to follow up to a local physician in [place] and requested to see me back at [facility]. A followup appointment was ordered. He is also recommended to follow up with oncologist every Monday to receive his routine chemotherapy until further recommendations otherwise. VITAL SIGNS: Prior to discharge, blood pressure 100/63, temperature 97.7, pulse 76, respirations 18, O2 saturation 98% on room air. Weight 203 pounds and height 5 feet 10 inches. CODE STATUS: Do not resuscitate. The patient was evaluated prior to discharge. PLAN OF CARE: Encouraged coordination of care with the daughter, Leila, were discussed. Med reconciliation with the daughter was likewise reviewed prior to discharge. Time spent during this discharge and examining the patient coordinating care 32 minutes. Job ID: [id number]
[2020-11-10] MEDS ORDERED: Carvedilol 3.125 MG TAB PO SCH (09:00)
[2020-11-11] MEDS ORDERED: Dexamethasone 4 MG TAB PO SCH (08:00)
== END 2020-11-09 14:28 | disposition home or self-care (01) | DRG 947 ==
LOC: MADMS 18:04 → UNDOADMIN 18:04 → MADMS 18:38
PROVIDERS: ADMIT Family Medicine; ATTEND Family Medicine
DX: R53.81 Other malaise (principal); I50.31 Acute diastolic (congestive) heart failure; C90.00 Multiple myeloma not having achieved remission; I13.0 Hypertensive heart and chronic kidney disease with heart failure and stage 1 through stage 4 chronic kidney disease, or unspecified chronic kidney disease; R26.81 Unsteadiness on feet; I27.20 Pulmonary hypertension, unspecified; D50.9 Iron deficiency anemia, unspecified; I48.0 Paroxysmal atrial fibrillation; N18.9 Chronic kidney disease, unspecified; E87.6 Hypokalemia; I25.10 Atherosclerotic heart disease of native coronary artery without angina pectoris; E78.5 Hyperlipidemia, unspecified; N40.0 Benign prostatic hyperplasia without lower urinary tract symptoms; S80.829A Blister (nonthermal), unspecified lower leg, initial encounter; R53.1 Weakness; G25.81 Restless legs syndrome; X58.XXXA Exposure to other specified factors, initial encounter; K21.9 Gastro-esophageal reflux disease without esophagitis; Z79.82 Long term (current) use of aspirin; Z79.01 Long term (current) use of anticoagulants
CPT/HCPCS: 36415; 80048; 80053; 85014; 85018; 85025; 85049; 85610; 85730; J2405; J3301; J8540

== ENCOUNTER 2021-06-24 21:13 | Emergency (ER) | payer MEDICARE, OTHER ==
[2021-06-24 21:53] LABS: #Monocytes 0.6 thou/uL (0.11-0.59); #Neutrophils 2.4 thou/uL (1.40-6.50); %Basophils 0.6 % (0.0-1.0); %Eosinophils 0.1 % (0.0-10.0); %Lymphocytes 25.1 % (21.0-51.0); %Monocytes 14.3 % (0.0-10.0); %Neutrophils 59.9 % (42.0-75.0); Burr Cells SLIGHT = 2-5 cells (100X) (0-1/hpf); Giant Platelets SLIGHT; Hemoglobin 12.5 g/dL (14.0-18.0); Large Platelets SLIGHT; MDiff Complete? YES; Mean Corpuscular HGB CONC 29.1 g/dL (32.0-36.0); Mean Corpuscular Hemoglobin 23.9 pg (27.0-31.0); Mean Corpuscular Volume 82.3 fL (78.0-98.0); Mean Platelet Volume 8.9 fL (7.4-10.4); Ovalocytes SLIGHT = 2-5 cells (100X) (0-1/hpf); Platelet Count 154 thou/uL (130-400); Platelet Morphology Comment Appears Adequate; Poikilocytosis SLIGHT = 6-15 cells (100X) (0-5/hpf); RBC Distribution Width 19.1 % (11.5-14.5); Red Blood Cell (RBC) Count 5.21 mill/uL (4.70-6.10)
[2021-06-24 22:01] LABS: ALT (SGPT) 103 U/L (8-55); AST (SGOT) 203 U/L (5-34); Albumin 3.7 g/dL (3.4-4.8); Alkaline Phosphatase 79 U/L (40-110); Anion Gap 22 mmol/L (10-20); BUN (Urea Nitrogen) 43 mg/dL (8.4-25.7); Bilirubin, Total 0.4 mg/dL (0.2-1.2); Calc. Creatinine Clearance 0 mL/min (70-130); Calcium 9.1 mg/dL (7.8-10.44); Carbon Dioxide 14 mmol/L (23-31); Chloride 104 mmol/L (98-107); Globulin 2.6 g/dL (2.4-3.5); Glucose 87 mg/dL (83-110); Magnesium 1.9 mg/dL (1.6-2.6); Potassium 3.9 mmol/L (3.5-5.1); Protein, Total 6.3 g/dL (5.8-8.1); Sodium 136 mmol/L (136-145)
[2021-06-24 22:19] LABS: CKMB 1.6 ng/mL (0-6.6)
[2021-06-24 22:34] LABS: Bilirubin Negative (Negative); Blood, Urine Negative (Negative); Clarity Clear (Clear); Glucose, Urine (Dipstick) Negative (Negative); Ketone, Urine Trace mg/dL (Negative); Leukocyte Trace (Negative); Nitrite Negative (Negative); Protein, Urine (Dipstick) Negative (Neg-Trace); Urobilinogen 0.2 mg/dL (Less than 2)
[2021-06-24 22:42] LABS: RBC/HPF 0-3 HPF (0-3)
== END 2021-06-24 22:51 | disposition home or self-care (01) ==
LOC: MADERS 21:13
DX: E86.0 Dehydration (principal); R74.8 Abnormal levels of other serum enzymes; E78.5 Hyperlipidemia, unspecified; E78.00 Pure hypercholesterolemia, unspecified; I11.0 Hypertensive heart disease with heart failure; I50.9 Heart failure, unspecified; Z79.82 Long term (current) use of aspirin; Z79.01 Long term (current) use of anticoagulants; Z79.899 Other long term (current) drug therapy
CPT/HCPCS: 80053; 81003; 81015; 82553; 83735; 84484; 85025; 93005

== ENCOUNTER 2023-05-04 15:11 | Inpatient (IN) | payer MEDICARE, OTHER ==
[2023-05-04] MEDS: Emollient 15 oz bottle 450 ML, Triamcinolone Acetonide 200 MG TOP SCH (20:17)
[2023-05-04] MEDS ORDERED: Famotidine 20 MG TAB PO SCH (21:00)
[2023-05-04] MEDS: Acetaminophen 325 MG TAB PO PRN (22:50)
[2023-05-05] MEDS: Tamsulosin HCl 0.4 MG CAP PO SCH (08:27)
[2023-05-05] MEDS: Finasteride 5 MG TAB PO SCH (08:27)
[2023-05-05] MEDS: Furosemide 20 MG TAB PO SCH ×2 (08:27→09:25)
[2023-05-05] MEDS: Aspirin Chewable 81 MG TAB PO SCH (08:27)
[2023-05-05] MEDS: Carvedilol 3.125 MG TAB PO SCH ×2 (08:27→09:25)
[2023-05-05] MEDS: Polyethylene Glycol 3350 17 GM Packet PO SCH (08:27)
[2023-05-05] MEDS: Spironolactone 25 MG TAB PO SCH ×2 (08:27→09:25)
[2023-05-05] MEDS: Emollient 15 oz bottle 450 ML, Triamcinolone Acetonide 200 MG TOP SCH ×3 (08:31→20:54)
[2023-05-05] MEDS ORDERED: Atorvastatin Calcium 10 MG TAB PO SCH (09:00)
[2023-05-05] MEDS ORDERED: Ondansetron ODT 4 MG TAB PO PRN (09:00)
[2023-05-05] MEDS ORDERED: Ondansetron ODT 4 MG TAB PO SCH (09:15)
[2023-05-05] MEDS: Loratadine 10 MG TAB PO PRN (12:38)
[2023-05-05] MEDS: Acetaminophen 325 MG TAB PO PRN ×2 (17:02→22:39)
[2023-05-05] MEDS: Rivaroxaban 10 MG TAB PO SCH (17:03)
[2023-05-05] MEDS: Atorvastatin Calcium 10 MG TAB PO SCH (20:50)
[2023-05-06] MEDS: Aspirin Chewable 81 MG TAB PO SCH (10:11)
[2023-05-06] MEDS: Tamsulosin HCl 0.4 MG CAP PO SCH (10:11)
[2023-05-06] MEDS: Emollient 15 oz bottle 450 ML, Triamcinolone Acetonide 200 MG TOP SCH ×2 (10:12→21:07)
[2023-05-06] MEDS: Carvedilol 3.125 MG TAB PO SCH (10:12)
[2023-05-06] MEDS: Furosemide 20 MG TAB PO SCH (10:12)
[2023-05-06] MEDS: Polyethylene Glycol 3350 17 GM Packet PO SCH (10:12)
[2023-05-06] MEDS: Finasteride 5 MG TAB PO SCH (10:12)
[2023-05-06] MEDS: Spironolactone 25 MG TAB PO SCH (10:12)
[2023-05-06] MEDS: Acetaminophen 325 MG TAB PO PRN ×2 (13:07→19:35)
[2023-05-06] MEDS: Rivaroxaban 10 MG TAB PO SCH (17:21)
[2023-05-06] MEDS: Atorvastatin Calcium 10 MG TAB PO SCH (19:53)
[2023-05-06] MEDS: Loratadine 10 MG TAB PO PRN (23:46)
[2023-05-07] MEDS: Acetaminophen 325 MG TAB PO PRN ×2 (05:24→18:34)
[2023-05-07] MEDS: Polyethylene Glycol 3350 17 GM Packet PO SCH (09:24)
[2023-05-07] MEDS: Aspirin Chewable 81 MG TAB PO SCH (09:24)
[2023-05-07] MEDS: Tamsulosin HCl 0.4 MG CAP PO SCH (09:24)
[2023-05-07] MEDS: Furosemide 20 MG TAB PO SCH (09:25)
[2023-05-07] MEDS: Finasteride 5 MG TAB PO SCH (09:25)
[2023-05-07] MEDS: Carvedilol 3.125 MG TAB PO SCH (09:25)
[2023-05-07] MEDS: Emollient 15 oz bottle 450 ML, Triamcinolone Acetonide 200 MG TOP SCH ×2 (09:26→20:11)
[2023-05-07] MEDS: Spironolactone 25 MG TAB PO SCH (09:26)
[2023-05-07] MEDS: Rivaroxaban 10 MG TAB PO SCH (17:01)
[2023-05-07] MEDS: Benzonatate 100 MG CAP PO PRN (20:11)
[2023-05-07] MEDS: Loratadine 10 MG TAB PO PRN (20:11)
[2023-05-07] MEDS: Atorvastatin Calcium 10 MG TAB PO SCH (20:11)
[2023-05-08 07:17] LABS: Hemoglobin 10.7 g/dL (14.0-18.0); Mean Corpuscular HGB CONC 33.5 g/dL (32.0-36.0); Mean Corpuscular Hemoglobin 36.3 pg (27.0-31.0); Mean Corpuscular Volume 108.4 fl (78.0-98.0); Platelet Count 185 10x3/uL (130-400); Red Blood Cell (RBC) Count 2.95 mill/uL (4.70-6.10); White Blood Cell (WBC) Count 5.2 10x3/uL (4.8-10.8)
[2023-05-08 07:20] LABS: ALT (SGPT) 10 U/L (8-55); AST (SGOT) 11 U/L (5-34); Albumin 3.5 g/dL (3.4-4.8); Alkaline Phosphatase 137 U/L (40-110); Anion Gap 13 mmol/L (10-20); BUN (Urea Nitrogen) 29 mg/dL (8.4-25.7); Bilirubin, Total 1.3 mg/dL (0.2-1.2); Calc. Creatinine Clearance 97 mL/min (70-130); Carbon Dioxide 25 mmol/L (23-31); Chloride 107 mmol/L (98-107); Estimated GFR 97; Globulin 2.9 g/dL (2.4-3.5); Glucose 124 mg/dL (83-110); Potassium 3.6 mmol/L (3.5-5.1); Protein, Total 6.4 g/dL (5.8-8.1); Sodium 141 mmol/L (136-145)
[2023-05-08 08:06] LABS: Calcium 14.8 mg/dL (7.8-10.44)
[2023-05-08] MEDS: Polyethylene Glycol 3350 17 GM Packet PO SCH (08:23)
[2023-05-08] MEDS: Furosemide 20 MG TAB PO SCH (08:24)
[2023-05-08] MEDS: Aspirin Chewable 81 MG TAB PO SCH (08:24)
[2023-05-08] MEDS: Loratadine 10 MG TAB PO SCH (08:24)
[2023-05-08] MEDS: Tamsulosin HCl 0.4 MG CAP PO SCH (08:24)
[2023-05-08] MEDS: Carvedilol 3.125 MG TAB PO SCH (08:24)
[2023-05-08] MEDS: Emollient 15 oz bottle 450 ML, Triamcinolone Acetonide 200 MG TOP SCH ×2 (08:25→20:56)
[2023-05-08 10:52] LABS: Bilirubin Negative (Negative); Blood, Urine Large (Negative); Glucose, Urine (Dipstick) Negative (Negative); Ketone, Urine Negative (Negative); Leukocyte Trace (Negative); Nitrite Negative (Negative); Protein, Urine (Dipstick) 30 mg/dL (Neg-Trace); Specific Gravity, Urine 1.025 (1.005-1.030); pH, Urine 5.5 (5.0-9.0)
[2023-05-08 11:10] LABS: CAUTI Indications for Culture Acute Hematuria; Clarity Hazy (Clear)
[2023-05-08 11:12] LABS: Bacteria/HPF 2+ HPF (None Seen); RBC/HPF Greater than 50 HPF (0-3); Squamous Epithelial 0-3 HPF (0-3); WBC/HPF 0-3 HPF (0-3)
[2023-05-08 11:14] LABS: Urine Culture Reflex No No
[2023-05-08] MEDS: Rivaroxaban 10 MG TAB PO SCH (16:50)
[2023-05-08] MEDS: Phenazopyridine HCl 95 MG TAB PO SCH (20:56)
[2023-05-08] MEDS: Mirtazapine 15 MG TAB PO SCH (20:56)
[2023-05-08] MEDS: Atorvastatin Calcium 10 MG TAB PO SCH (20:57)
[2023-05-08] MEDS: Acetaminophen 325 MG TAB PO PRN (20:57)
[2023-05-09] MEDS: Acetaminophen 325 MG TAB PO PRN (08:34)
[2023-05-09] MEDS: Phenazopyridine HCl 95 MG TAB PO SCH ×3 (08:35→20:46)
[2023-05-09] MEDS: Furosemide 20 MG TAB PO SCH (08:35)
[2023-05-09] MEDS: Polyethylene Glycol 3350 17 GM Packet PO SCH (08:35)
[2023-05-09] MEDS: Tamsulosin HCl 0.4 MG CAP PO SCH (08:35)
[2023-05-09] MEDS: Loratadine 10 MG TAB PO SCH (08:35)
[2023-05-09] MEDS: Emollient 15 oz bottle 450 ML, Triamcinolone Acetonide 200 MG TOP SCH ×2 (08:36→20:53)
[2023-05-09] MEDS: Carvedilol 3.125 MG TAB PO SCH (08:36)
[2023-05-09] MEDS: Aspirin Chewable 81 MG TAB PO SCH (08:37)
[2023-05-09] MEDS: Mirtazapine 15 MG TAB PO SCH (20:46)
[2023-05-09] MEDS: Atorvastatin Calcium 10 MG TAB PO SCH (20:46)
[2023-05-10] MEDS: Benzonatate 100 MG CAP PO PRN (01:00)
[2023-05-10] MEDS ORDERED: Ipratropium/Albuterol 3 ML NEB NEB PRN (06:21)
[2023-05-10] MEDS ORDERED: Ipratropium/Albuterol 3 ML NEB NEB SCH (06:30)
[2023-05-10] MEDS: Furosemide 20 MG TAB PO SCH (08:27)
[2023-05-10] MEDS: Tamsulosin HCl 0.4 MG CAP PO SCH (08:27)
[2023-05-10] MEDS: Aspirin Chewable 81 MG TAB PO SCH (08:27)
[2023-05-10] MEDS: Carvedilol 3.125 MG TAB PO SCH (08:28)
[2023-05-10] MEDS: Phenazopyridine HCl 95 MG TAB PO SCH ×2 (08:28→15:20)
[2023-05-10] MEDS: Loratadine 10 MG TAB PO SCH (08:28)
[2023-05-10] MEDS: Polyethylene Glycol 3350 17 GM Packet PO SCH (08:28)
[2023-05-10] MEDS: Emollient 15 oz bottle 450 ML, Triamcinolone Acetonide 200 MG TOP SCH ×2 (08:29→20:18)
[2023-05-10 19:52] VITALS: BMI 23.1
[2023-05-10] MEDS: Mirtazapine 15 MG TAB PO SCH (20:17)
[2023-05-10] MEDS: Atorvastatin Calcium 10 MG TAB PO SCH (20:17)
[2023-05-11] MEDS: Carvedilol 3.125 MG TAB PO SCH (09:21)
[2023-05-11] MEDS: Tamsulosin HCl 0.4 MG CAP PO SCH (09:21)
[2023-05-11] MEDS: Loratadine 10 MG TAB PO SCH (09:21)
[2023-05-11] MEDS: Furosemide 20 MG TAB PO SCH (09:21)
[2023-05-11] MEDS: Aspirin Chewable 81 MG TAB PO SCH (09:21)
[2023-05-11] MEDS: Polyethylene Glycol 3350 17 GM Packet PO SCH (09:21)
[2023-05-11] MEDS: Emollient 15 oz bottle 450 ML, Triamcinolone Acetonide 200 MG TOP SCH ×2 (09:22→21:06)
[2023-05-11] MEDS: Mirtazapine 15 MG TAB PO SCH (21:03)
[2023-05-11] MEDS: Atorvastatin Calcium 10 MG TAB PO SCH (21:04)
[2023-05-12] MEDS: Acetaminophen 325 MG TAB PO PRN ×3 (09:17→21:56)
[2023-05-12] MEDS: Aspirin Chewable 81 MG TAB PO SCH (09:17)
[2023-05-12] MEDS: Carvedilol 3.125 MG TAB PO SCH (09:17)
[2023-05-12] MEDS: Loratadine 10 MG TAB PO SCH (09:17)
[2023-05-12] MEDS: Tamsulosin HCl 0.4 MG CAP PO SCH (09:17)
[2023-05-12] MEDS: Furosemide 20 MG TAB PO SCH (09:17)
[2023-05-12] MEDS: Polyethylene Glycol 3350 17 GM Packet PO SCH (09:18)
[2023-05-12] MEDS: Emollient 15 oz bottle 450 ML, Triamcinolone Acetonide 200 MG TOP SCH ×2 (09:20→21:54)
[2023-05-12] MEDS ORDERED: Lantiseptic Ointment 130 GM JAR TOP PRN (20:36)
[2023-05-12] MEDS: Mirtazapine 15 MG TAB PO SCH (21:54)
[2023-05-12] MEDS: Lantiseptic Ointment 130 GM JAR TOP SCH (21:54)
[2023-05-12] MEDS: Atorvastatin Calcium 10 MG TAB PO SCH (21:54)
[2023-05-13] MEDS: Tamsulosin HCl 0.4 MG CAP PO SCH (08:44)
[2023-05-13] MEDS: Loratadine 10 MG TAB PO SCH (08:44)
[2023-05-13] MEDS: Carvedilol 3.125 MG TAB PO SCH (08:44)
[2023-05-13] MEDS: Aspirin Chewable 81 MG TAB PO SCH (08:44)
[2023-05-13] MEDS: Lantiseptic Ointment 130 GM JAR TOP SCH ×2 (08:45→20:58)
[2023-05-13] MEDS: Polyethylene Glycol 3350 17 GM Packet PO SCH (08:45)
[2023-05-13] MEDS: Furosemide 20 MG TAB PO SCH (08:45)
[2023-05-13] MEDS: Emollient 15 oz bottle 450 ML, Triamcinolone Acetonide 200 MG TOP SCH ×2 (08:46→20:54)
[2023-05-13] MEDS: Acetaminophen 325 MG TAB PO PRN (08:48)
[2023-05-13] MEDS ORDERED: HYDROcodone/Acetaminophen 5/325 mg Tablet PO PRN ×2 (14:06→14:07)
[2023-05-13] MEDS ORDERED: LevoFLOXacin 250 MG TAB PO SCH (15:00)
[2023-05-13] MEDS: Mirtazapine 15 MG TAB PO SCH (20:53)
[2023-05-13] MEDS ORDERED: Sulfameth/Trimethoprim DS 800-160mg TAB PO SCH (21:00)
[2023-05-14] MEDS: LevoFLOXacin 250 MG TAB PO SCH (06:07)
[2023-05-14] MEDS: Lantiseptic Ointment 130 GM JAR TOP SCH ×2 (08:08→21:59)
[2023-05-14] MEDS: Emollient 15 oz bottle 450 ML, Triamcinolone Acetonide 200 MG TOP SCH ×2 (08:09→21:59)
[2023-05-14 08:23] VITALS: BP 106/67; TEMP 97.8
[2023-05-14] MEDS: Loratadine 10 MG TAB PO SCH (08:36)
[2023-05-14] MEDS: Polyethylene Glycol 3350 17 GM Packet PO SCH (08:36)
[2023-05-14] MEDS: Tamsulosin HCl 0.4 MG CAP PO SCH (08:37)
[2023-05-14] MEDS ORDERED: Furosemide 20 MG TAB PO SCH (09:00)
[2023-05-14] MEDS ORDERED: Carvedilol 3.125 MG TAB PO SCH (09:00)
[2023-05-14] MEDS ORDERED: Morphine 10 MG/0.5 ML ORAL SYRINGE SL PRN (14:06)
[2023-05-14] MEDS: Mirtazapine 15 MG TAB PO SCH (21:59)
[2023-05-15] MEDS: LevoFLOXacin 250 MG TAB PO SCH (06:14)
[2023-05-15] MEDS: Loratadine 10 MG TAB PO SCH (08:35)
[2023-05-15] MEDS: Lantiseptic Ointment 130 GM JAR TOP SCH ×2 (08:35→21:50)
[2023-05-15] MEDS: Tamsulosin HCl 0.4 MG CAP PO SCH (08:36)
[2023-05-15] MEDS: Polyethylene Glycol 3350 17 GM Packet PO SCH (08:36)
[2023-05-15] MEDS: Emollient 15 oz bottle 450 ML, Triamcinolone Acetonide 200 MG TOP SCH ×2 (10:32→21:50)
[2023-05-15] MEDS: Mirtazapine 15 MG TAB PO SCH (21:50)
[2023-05-16] MEDS: LevoFLOXacin 250 MG TAB PO SCH (05:44)
[2023-05-16] MEDS: Lantiseptic Ointment 130 GM JAR TOP SCH ×2 (08:20→21:10)
[2023-05-16] MEDS: Emollient 15 oz bottle 450 ML, Triamcinolone Acetonide 200 MG TOP SCH ×2 (08:21→21:10)
[2023-05-16] MEDS: Tamsulosin HCl 0.4 MG CAP PO SCH (09:50)
[2023-05-16] MEDS: Loratadine 10 MG TAB PO SCH (09:50)
[2023-05-16] MEDS: Polyethylene Glycol 3350 17 GM Packet PO SCH (09:50)
[2023-05-16] MEDS: Artificial Tear Sol 15 ML BOT EA EYE PRN ×2 (11:20→15:28)
[2023-05-16] MEDS ORDERED: Acetaminophen 650 MG Suppository PR PRN (19:29)
[2023-05-17] MEDS: Lantiseptic Ointment 130 GM JAR TOP SCH (08:45)
[2023-05-17] MEDS: Polyethylene Glycol 3350 17 GM Packet PO SCH (08:45)
[2023-05-17] MEDS: Emollient 15 oz bottle 450 ML, Triamcinolone Acetonide 200 MG TOP SCH (08:45)
[2023-05-17] MEDS: Morphine 10 MG/0.5 ML ORAL SYRINGE SL PRN ×2 (10:11→12:21)
[2023-05-17] MEDS ORDERED: Morphine 10 MG/0.5 ML ORAL SYRINGE SL PRN (12:32)
== END 2023-05-17 13:25 | disposition expired | DRG 947 ==
LOC: MADMS 16:01
PROVIDERS: ADMIT Family Medicine; ATTEND Family Medicine
DX: R53.1 Weakness (principal); J69.0 Pneumonitis due to inhalation of food and vomit; J96.01 Acute respiratory failure with hypoxia; C90.00 Multiple myeloma not having achieved remission; I48.20 Chronic atrial fibrillation, unspecified; I50.22 Chronic systolic (congestive) heart failure; Z66 Do not resuscitate; Z51.5 Encounter for palliative care; I11.0 Hypertensive heart disease with heart failure; E78.5 Hyperlipidemia, unspecified; N40.0 Benign prostatic hyperplasia without lower urinary tract symptoms; G47.33 Obstructive sleep apnea (adult) (pediatric); E83.52 Hypercalcemia; D64.9 Anemia, unspecified; R31.0 Gross hematuria; R63.0 Anorexia; R13.10 Dysphagia, unspecified; I46.2 Cardiac arrest due to underlying cardiac condition; I49.9 Cardiac arrhythmia, unspecified; I69.398 Other sequelae of cerebral infarction; Z79.01 Long term (current) use of anticoagulants; Z91.81 History of falling; Z79.82 Long term (current) use of aspirin; Z79.899 Other long term (current) drug therapy; Z95.5 Presence of coronary angioplasty implant and graft; Z87.440 Personal history of urinary (tract) infections; I69.319 Unspecified symptoms and signs involving cognitive functions following cerebral infarction; I69.391 Dysphagia following cerebral infarction
CPT/HCPCS: 36415; 71045; 80053; 81001; 82330; 85027; 87086; 94640; J3301; J7620; Q0162